=== PATIENT | female | born 1945 | race Two or more races ===

== ENCOUNTER 2019-07-25 13:50 | Outpatient (CLI) | payer OTHER | END 2019-07-25 14:02 | disposition home or self-care (01) | LOC: RAD 13:50 | DX: M41.9 Scoliosis, unspecified (principal); M21.70 Unequal limb length (acquired), unspecified site ==

== ENCOUNTER 2022-01-06 12:00 | Inpatient (IN) | payer OTHER ==
[~2022-01-06] VITALS: Ht 152.4 cm; Wt 50.8 kg
[2022-01-06] MEDS ORDERED: LIPITOR PO (14:13)
[2022-01-06] MEDS ORDERED: SYNTHROID50 MCG PO (14:13)
[2022-01-11] MEDS ORDERED: ATORVASTATIN CA10 MG (08:11)
[2022-01-11] MEDS ORDERED: NABUMETONE750 MG (08:11)
[2022-01-14] MEDS ORDERED: XARELTO10 MG PO (11:55)
[2022-01-14] MEDS ORDERED: OXYC1TAB9 PO (11:56)
[2022-01-14] MEDS ORDERED: NORFLEX100MG PO (12:01)
[2022-01-14] MEDS ORDERED: GABAPENTIN100 MG PO (12:01)
== END 2022-01-14 22:29 | disposition home or self-care (01) | DRG 467 ==
LOC: SURH 01-11 06:00 → O/R 01-11 06:00 → SURG 01-11 07:00 → SURH 01-11 15:26
PROVIDERS: ADMIT Orthopaedic Surgery; ATTEND Orthopaedic Surgery
PROC: 0SRD0J9 Replacement of Left Knee Joint with Synthetic Substitute, Cemented, Open Approach (ICD-10-PCS; 2022-01-11)
PROC: 0SPD0JZ Removal of Synthetic Substitute from Left Knee Joint, Open Approach (ICD-10-PCS; principal; 2022-01-11 07:00)
DX: T84.093A Other mechanical complication of internal left knee prosthesis, initial encounter (principal); D62 Acute posthemorrhagic anemia; M86.052 Acute hematogenous osteomyelitis, left femur; M85.662 Other cyst of bone, left lower leg; E03.9 Hypothyroidism, unspecified; E78.5 Hyperlipidemia, unspecified